=== PATIENT | male | born 1960 | race Caucasian/White ===

== ENCOUNTER → 2019-10-03 | Outpatient (CLI) | payer BC ==
[~2019-10-03] MED LIST: AMLODIPINE BESYL5 MG PO; ATORVASTATIN CA10 MG PO; BENAZEPRIL HCL10 MG PO; FLONASE
--- NOTE | 2019-10-03 10:08 | Diagnostic Imaging Report ---
EXAM: CHEST 2 VIEWS DATE: 10/03/2019 9:03 AM INDICATION: 1 physical COMPARISON: None FINDINGS: The trachea is midline. The lungs are symmetrically expanded without evidence for large focal consolidation, pneumothorax, or significant pleural effusion. A suspected subcentimeter calcified granuloma is noted within the left upper lobe. The cardiomediastinal silhouette and pulmonary vasculature are within normal limits. No acute osseous abnormality is identified. The surrounding soft tissues are unremarkable. IMPRESSION: No acute cardiopulmonary process identified. Signed by: Dr. Jacob Pérez MD on 10/03/2019 10:04 AM
== END ==
LOC: RAD 08:53
PROVIDERS: ATTEND General Practice
DX: Z00.00 Encounter for general adult medical examination without abnormal findings (principal)
CPT/HCPCS: 71046